=== PATIENT | male | born 1980 | race Caucasian/White ===

== ENCOUNTER → 2021-08-19 | Outpatient (CLI) | payer OTHER ==
[~2021-08-19] MED LIST: GADOTERATE 7.5 MMOL/15ML VIAL. IVP ONE
--- NOTE | 2021-08-19 12:14 | RAD ---
MRI BRAIN WO+W History:Reason: seizure 15mL CLARISCAN / Spl. Instructions: / History: Technique: Multiplanar, multi sequential without and with intravenous contrast MR imaging was perform ed of the brain. Comparison: None Findings: No acute infarct. No pathologic enhancement. Extra-axial spaces are unremarkable. Symmetric bilateral hippocampal formations. No abnormal signal abnormality. No evidence of cortical d ysplasia or heterotopic caballero matter. Imaged orbits are unremarkable. Small right anterior maxillary sinus mucous retention cyst. Impression: 1. No acute intracranial abnormality. Electronically signed by: Jerald Wilder DO (08/19/2021 12:12 PM) [facility]
== END ==
LOC: MRI 09:59
PROVIDERS: ATTEND Nurse Practitioner Family
DX: R56.9 Unspecified convulsions (principal); J34.1 Cyst and mucocele of nose and nasal sinus
CPT/HCPCS: 70553; A9575